=== PATIENT | female | born 1975 | race Caucasian/White ===

== ENCOUNTER 2023-03-07 10:00 | Day surgery (SDC) | payer BC ==
[2023-03-05 16:47] VITALS: BMI 27.3
[2023-03-05 17:16] LABS: Hemoglobin 12.4 g/dL (12.0-15.5); Mean Corpuscular HGB CONC 33.5 g/dL (32.0-36.0); Mean Corpuscular Hemoglobin 29.5 pg (27.0-33.0); Mean Corpuscular Volume 88.1 fl (81.6-98.3); Mean Platelet Volume 10.8 fl (7.4-10.4); Platelet Count 243 10x3/uL (150-450); RBC Distribution Width 12.9 % (11.5-14.5); White Blood Cell (WBC) Count 5.7 10x3/uL (3.5-10.5)
[2023-03-05 17:35] LABS: BHCG - Serum Negative (NEGATIVE); Pregs Control Background? CLEAR/WHITE (CLR/WHITE); Pregs Control Bar Appear? YES (CONTROL BAR)
[2023-03-07] MEDS ORDERED: Gabapentin 300 MG CAP ONE (10:51)
[2023-03-07] MEDS ORDERED: Famotidine/PF 20 mg/2ml Vial ONE (10:52)
[2023-03-07] MEDS ORDERED: CeleCOXIB 100 MG CAP ONE (10:52)
[2023-03-07] MEDS ORDERED: Bupivacaine HCl 0.5%/Epinephrine 1:200,000/PF 30 ml Vial ONE (12:30)
[2023-03-07] MEDS ORDERED: PROPOFOL 20 ML ONE (12:35)
[2023-03-07] MEDS ORDERED: Fentanyl 250 MCG/5 ML VIAL ONE (12:35)
[2023-03-07] MEDS ORDERED: Midazolam HCl 2 mg/2 ml Vial ONE (12:35)
[2023-03-07] MEDS ORDERED: Lidocaine 1% PF 5 ML VIAL ONE (12:36)
[2023-03-07] MEDS ORDERED: Dexamethasone 20 MG/5 ML VIAL ONE (12:36)
[2023-03-07] MEDS ORDERED: Ketorolac Tromethamine 30 MG/ML VIAL ONE (12:36)
[2023-03-07] MEDS ORDERED: Rocuronium Bromide 10 MG/ML (10ML VIAL) ONE (12:36)
[2023-03-07] MEDS ORDERED: Ondansetron PF 4 MG/2 ML Vial ONE (12:36)
[2023-03-07] MEDS ORDERED: CEFAZOLIN 2 GM VIAL ONE (12:46)
[2023-03-07] MEDS ORDERED: HYDROcodone/Acetaminophen 5/325 mg Tablet ONE (15:12)
== END 2023-03-07 16:05 | disposition home or self-care (01) ==
LOC: CSHSDC 10:00
PROVIDERS: ATTEND Obstetrics & Gynecology
PROC: 0UT74ZZ Resection of Bilateral Fallopian Tubes, Percutaneous Endoscopic Approach (ICD-10-PCS; principal; 2023-03-07)
PROC: 0UT04ZZ Resection of Right Ovary, Percutaneous Endoscopic Approach (ICD-10-PCS; principal; 2023-03-07)
DX: D25.9 Leiomyoma of uterus, unspecified (principal); N83.12 Corpus luteum cyst of left ovary; N83.291 Other ovarian cyst, right side; E78.5 Hyperlipidemia, unspecified; F32.A Depression, unspecified; I10 Essential (primary) hypertension; F41.9 Anxiety disorder, unspecified; Z79.899 Other long term (current) drug therapy
CPT/HCPCS: 36415; 84703; 85027; 86850; 86900; 86901; 88305; J1100; J1885; J2250; J2405; J2704; J3010; S0028

== ENCOUNTER 2023-09-07 10:15 | Outpatient (CLI) | payer BC | END 2023-09-07 10:16 | disposition home or self-care (01) | LOC: CSHMAMMO 10:15 | PROVIDERS: ATTEND Family Medicine | DX: Z12.31 Encounter for screening mammogram for malignant neoplasm of breast (principal) | CPT/HCPCS: 77063; 77067 ==